=== PATIENT | female | born 1965 | race Two or more races ===

== ENCOUNTER 2018-08-08 19:27 | Emergency (ER) | payer SELFPAY ==
[~2018-08-08] VITALS: Ht 157.5 cm; Wt 79.8 kg
[2018-08-08 20:03] VITALS: BP 149/89
== END 2018-08-09 02:06 | disposition home or self-care (01) ==
LOC: ER 19:27
DX: J01.90 Acute sinusitis, unspecified (principal); Z88.8 Allergy status to other drugs, medicaments and biological substances
CPT/HCPCS: 82962; 93005

== ENCOUNTER 2018-12-20 01:15 | Emergency (ER) | payer MEDICAID ==
[~2018-12-20] VITALS: Ht 157.5 cm; Wt 81.2 kg
[2018-12-20 02:04] LABS: Basophils # (auto) 0 uL; Basophils % (auto) 0.3 % (0.0-2.0); Eosinophils # (auto) 0.1 uL; Eosinophils % (auto) 0.7 % (0.0-7.0); Hematocrit 38.6 % (36.0-46.0); Hemoglobin 12.7 g/dL (12.2-16.2); Lymphocytes % (auto) 36.9 % (10.0-50.0); Mean Corpuscular Hemoglobin 27.2 pg (28.0-32.0); Mean Corpuscular Hgb Conc. 32.9 g/dL (32.0-36.0); Mean Corpuscular Volume 82.8 fL (80.0-100.0); Monocytes # (auto) 0.9 uL; Monocytes % (auto) 11.2 % (0.0-12.0); Neutrophils # (auto) 4.2 uL; Neutrophils % (auto) 50.9 % (37.0-80.0); Nucleated Red Blood Cells % 0.1 %; Platelet Count (auto) 274 10^3/uL (140-450); Red Blood Cells 4.66 10^6/uL (4.0-5.20); Red Cell Distribution Width 13.8 % (11.8-14.3); White Blood Cell 8.2 10^3/uL (4.4-10.8)
[2018-12-20 02:23] LABS: Albumin 3.6 g/dL (3.4-5.0); BUN/Creatinine Ratio 28.1; Calcium 7.9 mg/dL (8.5-10.1); Potassium 3.8 mmol/L (3.5-5.1)
[2018-12-20 02:26] LABS: Bilirubin, Total 0.2 mg/dL (0.2-1.0); Total Protein 7.3 g/dL (6.4-8.2)
[2018-12-20 07:27] VITALS: BP 135/80
[2018-12-20 07:41] LABS: Urine Bacteria MANY /hpf (None Seen); Urine Blood Negative /uL (Negative); Urine Budding Yeast OCCASIONAL /hpf (None Seen); Urine Mucus MODERATE (None Seen); Urine Specific Gravity 1.026 (1.001-1.035); Urine WBC 86 /hpf (0 - 5)
== END 2018-12-20 07:38 | disposition home or self-care (01) ==
LOC: ER 01:20
DX: N39.0 Urinary tract infection, site not specified (principal); E11.9 Type 2 diabetes mellitus without complications; Z98.51 Tubal ligation status; Z88.6 Allergy status to analgesic agent
CPT/HCPCS: 36415; 74176; 80053; 81001; 84702; 85025; 93005

== ENCOUNTER 2019-10-17 10:24 | Emergency (ER) | payer MEDICAID ==
[~2019-10-17] VITALS: Ht 157.5 cm; Wt 84.8 kg
[2019-10-17] MEDS ORDERED: SODIUM CHLORIDE 0.9% 1,000 ML IV ONE (10:25)
[2019-10-17 10:26] VITALS: BP 143/93
[2019-10-17] MEDS ORDERED: LORazepam 2MG/ML-1ML VIAL IV ONE (10:30)
[2019-10-17 11:04] LABS: Albumin 4.2 g/dL (3.4-5.0); Anion Gap 11 (5-15); Blood Urea Nitrogen 15 mg/dL (7-18); Calcium 8.6 mg/dL (8.5-10.1); Carbon Dioxide 22 mmol/L (21-32); Chloride 103 mmol/L (98-107); Glucose 375 mg/dL (74-106); Sodium 136 mmol/L (136-145)
[2019-10-17 11:09] LABS: Alanine Aminotransferase 34 U/L (13-56); Alkaline Phosphatase 75 U/L (45-117); Aspartate Aminotransferase 21 U/L (15-37); BUN/Creatinine Ratio 16.1; Bilirubin, Total 0.4 mg/dL (0.2-1.0); GFR African American 81 mL/min; GFR Non-African American 67 mL/min
[2019-10-17 11:10] LABS: Basophils # (auto) 0.2 uL; Basophils % (auto) 2.4 % (0.0-2.0); Eosinophils # (auto) 0 uL; Eosinophils % (auto) 0.3 % (0.0-7.0); Hematocrit 38.2 % (36.0-46.0); Hemoglobin 12.8 g/dL (12.2-16.2); Lymphocytes # (auto) 2.2 uL; Lymphocytes % (auto) 33.9 % (10.0-50.0); Mean Corpuscular Hemoglobin 27.8 pg (28.0-32.0); Mean Corpuscular Hgb Conc. 33.5 g/dL (32.0-36.0); Mean Corpuscular Volume 83.2 fL (80.0-100.0); Monocytes # (auto) 0.5 uL; Neutrophils # (auto) 3.6 uL; Neutrophils % (auto) 55.4 % (37.0-80.0); Nucleated Red Blood Cells % 0.1 %; Platelet Count (auto) 248 10^3/uL (140-450); Red Blood Cells 4.59 10^6/uL (4.0-5.20); Red Cell Distribution Width 13.3 % (11.8-14.3); White Blood Cell 6.4 10^3/uL (4.4-10.8)
== END 2019-10-17 11:47 | disposition home or self-care (01) ==
LOC: ER 10:26
DX: F41.9 Anxiety disorder, unspecified (principal); E11.65 Type 2 diabetes mellitus with hyperglycemia; R19.7 Diarrhea, unspecified; Z98.51 Tubal ligation status; Z88.6 Allergy status to analgesic agent
CPT/HCPCS: 36415; 71045; 80053; 84484; 85025; 96361; 96374; 99284; J7030

== ENCOUNTER 2019-11-09 17:28 | Emergency (ER) | payer MEDICAID ==
[~2019-11-09] VITALS: Ht 157.5 cm; Wt 84.8 kg
[2019-11-09 17:51] VITALS: BP 149/70
[2019-11-09 18:34] LABS: Urine WBC None Seen /hpf (0 - 5)
[2019-11-09 19:19] LABS: Urine Bacteria NONE SEEN /hpf (None Seen); Urine Blood Negative /uL (Negative); Urine Budding Yeast FEW /hpf (None Seen); Urine Specific Gravity 1.033 (1.001-1.035)
== END 2019-11-09 20:24 | disposition home or self-care (01) ==
LOC: ER 17:39
DX: Z78.0 Asymptomatic menopausal state (principal); E11.9 Type 2 diabetes mellitus without complications; Z88.8 Allergy status to other drugs, medicaments and biological substances
CPT/HCPCS: 81001; 81025

== ENCOUNTER 2020-04-02 09:06 | Emergency (ER) | payer MEDICAID ==
[~2020-04-02] VITALS: Ht 157.5 cm; Wt 81.6 kg
[2020-04-02 09:34] VITALS: BP 127/76
== END 2020-04-02 10:03 | disposition home or self-care (01) ==
LOC: ER 09:06
DX: M62.838 Other muscle spasm (principal); E11.9 Type 2 diabetes mellitus without complications

== ENCOUNTER 2020-07-10 20:43 | Emergency (ER) | payer MEDICAID ==
[~2020-07-10] VITALS: Ht 157.5 cm; Wt 83.9 kg
[2020-07-11 00:57] VITALS: BP 147/82
== END 2020-07-11 01:40 | disposition home or self-care (01) ==
LOC: ER 20:43
DX: H65.03 Acute serous otitis media, bilateral (principal); J30.2 Other seasonal allergic rhinitis; E11.9 Type 2 diabetes mellitus without complications

== ENCOUNTER 2020-08-27 11:10 | Emergency (ER) | payer MEDICAID ==
[~2020-08-27] VITALS: Ht 157.5 cm; Wt 81.6 kg
[2020-08-27 13:02] VITALS: BP 133/86
== END 2020-08-27 14:05 | disposition home or self-care (01) ==
LOC: ER 11:10
DX: S40.862A Insect bite (nonvenomous) of left upper arm, initial encounter (principal); W57.XXXA Bitten or stung by nonvenomous insect and other nonvenomous arthropods, initial encounter; Y93.89 Activity, other specified; Y92.89 Other specified places as the place of occurrence of the external cause; Y99.8 Other external cause status

== ENCOUNTER 2021-04-02 12:26 | Emergency (ER) | payer MEDICAID ==
[~2021-04-02] VITALS: Ht 157.5 cm; Wt 92.5 kg
[2021-04-02 13:08] LABS: Basophils # (auto) 0 10 ^3/uL (0-0.2); Basophils % (auto) 0.3 % (0.0-2.0); Eosinophils # (auto) 0 10 ^3/uL (0-0.8); Eosinophils % (auto) 0.6 % (0.0-7.0); Hemoglobin 12.7 g/dL (12.2-16.2); Lymphocytes # (auto) 2.2 10 ^3/uL (0.4-5.4); Lymphocytes % (auto) 34.1 % (10.0-50.0); Mean Corpuscular Hgb Conc. 32.4 g/dL (32.0-36.0); Mean Corpuscular Volume 83.2 fL (80.0-100.0); Monocytes # (auto) 0.7 10 ^3/uL (0-1.3); Monocytes % (auto) 10.7 % (0.0-12.0); Neutrophils # (auto) 3.5 10 ^3/uL (1.6-8.6); Neutrophils % (auto) 54.3 % (37.0-80.0); Platelet Count (auto) 258 10^3/uL (140-450); Red Blood Cells 4.69 10^6/uL (4.0-5.20); Red Cell Distribution Width 14.1 % (11.8-14.3); White Blood Cell 6.5 10^3/uL (4.4-10.8)
[2021-04-02 13:22] LABS: Calcium 8.7 mg/dL (8.5-10.1); Potassium 4.1 mmol/L (3.5-5.1)
[2021-04-02 13:28] LABS: Albumin 3.6 g/dL (3.4-5.0); BUN/Creatinine Ratio 29.6; Bilirubin, Total 0.2 mg/dL (0.2-1.0); Total Protein 7.8 g/dL (6.4-8.2)
[2021-04-02] MEDS ORDERED: SODIUM CHLORIDE 0.9% 1,000 ML IV ONE ×2 (14:30)
[2021-04-02 17:32] VITALS: BP 157/61
== END 2021-04-02 18:51 | disposition home or self-care (01) ==
LOC: ER 12:26
DX: E11.65 Type 2 diabetes mellitus with hyperglycemia (principal); Z88.8 Allergy status to other drugs, medicaments and biological substances
CPT/HCPCS: 36415; 80053; 85025; 96360; 99283; J7030

== ENCOUNTER 2021-04-20 22:39 | Emergency (ER) | payer MEDICAID ==
[~2021-04-20] VITALS: Ht 157.5 cm; Wt 93.9 kg
[2021-04-20] MEDS ORDERED: ADENOSINE 6 MG/2 ML INJ IV ONE ×2 (22:42→23:15)
[2021-04-20] MEDS ORDERED: LORazepam 2MG/ML-1ML VIAL ONE (22:45)
[2021-04-20 22:59] LABS: Basophils # (auto) 0 10 ^3/uL (0-0.2); Basophils % (auto) 0.3 % (0.0-2.0); Eosinophils # (auto) 0 10 ^3/uL (0-0.8); Eosinophils % (auto) 0.3 % (0.0-7.0); Hematocrit 41.4 % (36.0-46.0); Hemoglobin 13.8 g/dL (12.2-16.2); Lymphocytes # (auto) 3.6 10 ^3/uL (0.4-5.4); Lymphocytes % (auto) 35.9 % (10.0-50.0); Mean Corpuscular Hemoglobin 27.8 pg (28.0-32.0); Mean Corpuscular Hgb Conc. 33.3 g/dL (32.0-36.0); Mean Corpuscular Volume 83.4 fL (80.0-100.0); Monocytes # (auto) 1.2 10 ^3/uL (0-1.3); Monocytes % (auto) 11.7 % (0.0-12.0); Neutrophils # (auto) 5.1 10 ^3/uL (1.6-8.6); Neutrophils % (auto) 51.8 % (37.0-80.0); Nucleated Red Blood Cells % 0.1 %; Platelet Count (auto) 320 10^3/uL (140-450); Red Blood Cells 4.96 10^6/uL (4.0-5.20); Red Cell Distribution Width 14.2 % (11.8-14.3); White Blood Cell 9.9 10^3/uL (4.4-10.8)
[2021-04-20 23:15] LABS: Magnesium 1.9 mg/dL (1.6-2.6)
[2021-04-20] MEDS ORDERED: LORazepam 2MG/ML-1ML VIAL IV ONE (23:15)
[2021-04-20 23:16] LABS: INR 0.92 (0.9-1.15); Partial Thromboplastin Time 26.1 sec (23.0-31.2)
[2021-04-21 01:55] LABS: BUN/Creatinine Ratio 18.6; Potassium 3.9 mmol/L (3.5-5.1)
[2021-04-21 02:44] VITALS: BP 122/81
== END 2021-04-21 03:29 | disposition home or self-care (01) ==
LOC: ER 22:39
DX: I47.1 Supraventricular tachycardia (principal); E11.9 Type 2 diabetes mellitus without complications; Z88.8 Allergy status to other drugs, medicaments and biological substances
CPT/HCPCS: 36415; 71045; 80048; 83735; 84484; 85025; 85610; 85730; 93005; 96374; 96375; 99285; J0153; J2060

== ENCOUNTER 2021-08-23 20:31 | Emergency (ER) | payer MEDICAID ==
[~2021-08-23] VITALS: Ht 157.5 cm; Wt 99.8 kg
[2021-08-24 00:32] LABS: Basophils # (auto) 0 10 ^3/uL (0-0.2); Basophils % (auto) 0.5 % (0.0-2.0); Eosinophils # (auto) 0 10 ^3/uL (0-0.8); Eosinophils % (auto) 0.4 % (0.0-7.0); Lymphocytes # (auto) 1.6 10 ^3/uL (0.4-5.4); Lymphocytes % (auto) 27.6 % (10.0-50.0); Mean Corpuscular Hemoglobin 27.2 pg (28.0-32.0); Mean Corpuscular Hgb Conc. 32.5 g/dL (32.0-36.0); Mean Corpuscular Volume 83.7 fL (80.0-100.0); Monocytes # (auto) 0.7 10 ^3/uL (0-1.3); Monocytes % (auto) 11.5 % (0.0-12.0); Neutrophils # (auto) 3.5 10 ^3/uL (1.6-8.6); Nucleated Red Blood Cells % 0.1 %; Red Blood Cells 4.42 10^6/uL (4.0-5.20); Red Cell Distribution Width 14.2 % (11.8-14.3); White Blood Cell 5.8 10^3/uL (4.4-10.8)
[2021-08-24 00:50] LABS: Albumin 3.4 g/dL (3.4-5.0); BUN/Creatinine Ratio 25.8; Calcium 9.1 mg/dL (8.5-10.1); Potassium 4.5 mmol/L (3.5-5.1)
[2021-08-24 00:58] LABS: Bilirubin, Total 0.2 mg/dL (0.2-1.0); Total Protein 7.4 g/dL (6.4-8.2)
[2021-08-24 01:28] VITALS: BP 148/86
== END 2021-08-24 01:26 | disposition home or self-care (01) ==
LOC: ER 20:32
DX: R23.3 Spontaneous ecchymoses (principal); R21 Rash and other nonspecific skin eruption; E66.9 Obesity, unspecified; E78.00 Pure hypercholesterolemia, unspecified; E11.9 Type 2 diabetes mellitus without complications; K21.9 Gastro-esophageal reflux disease without esophagitis; Z68.41 Body mass index [BMI] 40.0-44.9, adult; Z88.8 Allergy status to other drugs, medicaments and biological substances; Z98.890 Other specified postprocedural states; Z98.51 Tubal ligation status
CPT/HCPCS: 36415; 80053; 85025

== ENCOUNTER 2022-08-13 03:14 | Emergency (ER) | payer MEDICAID, OTHER ==
[~2022-08-13] VITALS: Ht 157.5 cm; Wt 90.7 kg
[2022-08-13 03:23] VITALS: BP 170/71
[2022-08-13] MEDS ORDERED: HYDROcodone-ACET 5/325MG TAB PO ONE (05:15)
== END 2022-08-13 05:44 | disposition home or self-care (01) ==
LOC: EDBD 03:14 → ER 03:20
DX: M54.2 Cervicalgia (principal); M54.6 Pain in thoracic spine; R51.9 Headache, unspecified; E11.9 Type 2 diabetes mellitus without complications; R07.89 Other chest pain; E78.5 Hyperlipidemia, unspecified; Z88.8 Allergy status to other drugs, medicaments and biological substances
CPT/HCPCS: 70450; 71045; 72125; 72128; 72131

== ENCOUNTER 2023-09-05 15:45 | Emergency (ER) | payer MEDICAID, OTHER ==
[~2023-09-05] VITALS: Ht 154.9 cm; Wt 93.5 kg
[2023-09-05] MEDS ORDERED: KETOROLAC TROMETH 60MG/2ML VIAL IM ONE (17:15)
[2023-09-05 17:22] VITALS: BP 154/84; PULSE 100; RESP 16; O2SAT 95
== END 2023-09-05 17:29 | disposition home or self-care (01) ==
LOC: ER 15:45
DX: M79.7 Fibromyalgia (principal); E11.9 Type 2 diabetes mellitus without complications; E78.5 Hyperlipidemia, unspecified; Z98.890 Other specified postprocedural states; Z88.8 Allergy status to other drugs, medicaments and biological substances
CPT/HCPCS: 96372; 99283; J1885

== ENCOUNTER 2024-08-14 10:26 | Emergency (ER) | payer OTHER, MEDICAID ==
[2024-08-14 11:12] LABS: Basophils # (auto) 0 10 ^3/uL (0-0.2); Basophils % (auto) 0.4 % (0.0-2.0); Eosinophils # (auto) 0 10 ^3/uL (0-0.8); Eosinophils % (auto) 0.4 % (0.0-7.0); Hematocrit 36.3 % (36.0-46.0); Hemoglobin 12.1 g/dL (12.2-16.2); Lymphocytes # (auto) 1.7 10 ^3/uL (0.4-5.4); Lymphocytes % (auto) 36.6 % (10.0-50.0); Mean Corpuscular Hemoglobin 27.5 pg (28.0-32.0); Mean Corpuscular Hgb Conc. 33.4 g/dL (32.0-36.0); Mean Corpuscular Volume 82.4 fL (80.0-100.0); Monocytes # (auto) 0.6 10 ^3/uL (0-1.3); Monocytes % (auto) 13.6 % (0.0-12.0); Neutrophils # (auto) 2.3 10 ^3/uL (1.6-8.6); Nucleated Red Blood Cells % 0.1 %; Platelet Count (auto) 225 10^3/uL (140-450); Red Cell Distribution Width 14.8 % (11.8-14.3); White Blood Cell 4.6 10^3/uL (4.4-10.8)
[2024-08-14 11:21] LABS: Chloride 105 mmol/L (98-107); Potassium 4.3 mmol/L (3.5-5.1); Sodium 138 mmol/L (136-145)
[2024-08-14 11:22] LABS: Anion Gap 8 (5-15); Carbon Dioxide 25 mmol/L (20-30)
[2024-08-14 11:23] LABS: Calcium 9.7 mg/dL (8.7-10.4)
[2024-08-14 11:27] LABS: Glucose 210 mg/dL (74-106)
[2024-08-14 11:28] LABS: BUN/Creatinine Ratio 10.5 (10.0-20.0); Blood Urea Nitrogen 8 mg/dL (9-23)
[2024-08-14 13:18] LABS: Urine Bacteria FEW /hpf (None Seen); Urine Blood Negative /uL (Negative); Urine Color Light-Yellow (Yellow); Urine Hyaline Cast FEW /lpf (0 - 2); Urine Mucus FEW (None Seen); Urine Protein, UAD TRACE (Negative); Urine Specific Gravity 1.023 (1.001-1.035); Urine Urobilinogen Normal (Negative); Urine WBC 1 /hpf (0 - 5)
[2024-08-14 13:21] LABS: Urine Clarity CLEAR (Clear)
[2024-08-14 13:47] VITALS: BP 150/94; TEMP 98
[2024-08-14 13:48] VITALS: PULSE 105; RESP 18; O2SAT 97
== END 2024-08-14 13:49 | disposition home or self-care (01) ==
LOC: ER 10:26
DX: E11.649 Type 2 diabetes mellitus with hypoglycemia without coma (principal); E78.5 Hyperlipidemia, unspecified; Z98.51 Tubal ligation status; Z88.6 Allergy status to analgesic agent
CPT/HCPCS: 36415; 80048; 81001; 85025

== ENCOUNTER 2025-09-04 21:15 | Emergency (ER) | payer OTHER, MEDICAID ==
[~2025-09-04] VITALS: Ht 160 cm; Wt 88.9 kg
--- NOTE | 2025-09-04 21:58 | ED.PDOC ---
History of Present Illness HPI Comments 60 y/o obese F, with a history of DM, presents with c/c of hyperglycemia. Patient endorses on checking and noticing her blood glucose levels being elevated, this evening, after becoming dizzy and having trouble maintaining her balance when walking a straight line, earlier. She comments on last at-home blood glucose level being 459. Reports on not taking her long and short acting insulin for 1x week and managing her blood glucose levels with diet and exercise. She also mentions previous episode of symptoms, with accompanying ED visit, 2x weeks ago. No reported nausea, vomiting, shortness of breath, confusion, polyuria, polydipsia, polyphagia, or further associated symptoms. 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 Family History Family History: Family hx of DM Social History Smoker: Non-Smoker Alcohol: Occasionally Drugs: Denies Drug Use Lives In: Home All Other Systems: Reviewed and Negative (Comprehensive review of systems are negative unless stated in HPI) Physical Exam General Appearance: Mild Distress, Obese HEENT: Normal ENT Inspection, Pharynx Normal, TMs Normal Neck: Full Range of Motion, Non-Tender, Normal, Normal Inspection Respiratory: Chest Non-Tender, Lungs Clear, No Accessory Muscle Use, No Respiratory Distress, Normal Breath Sounds Cardiovascular: No Edema, No JVD, No Murmur, No Gallop, Normal Peripheral Pulses, Regular Rate/Rhythm Breast Exam: Deferred Gastrointestinal: No Organomegaly, Non Tender, No Pulsatile Mass, Normal Bowel Sounds, Soft Genitalia: Deferred Pelvic: Deferred Rectal: Deferred Extremities: No calf tenderness, Normal capillary refill, Normal inspection, Normal range of motion, Non-tender, No pedal edema Musculoskeletal : Apperance: Normal Neurologic: Alert, home based assistant II-XII nml as Tested, No Motor Deficits, Normal Affect, Normal Mood, No Sensory Deficits Cerebellar Function: Normal Reflexes: Normal Skin: Dry, Normal Color, Warm Lymphatic: No Adenopathy Was a procedure done? Was a procedure done?: No Differential Dx Considerations may include: hyperglycemia, DKA, medication noncompliance X-Ray, Labs, Meds, VS Vital Signs Date Time Temp Pulse Resp B/P (MAP) Pulse Ox O2 Delivery O2 Flow Rate FiO2 09/05/25 03:09 97.8 92 16 142/70 (94) 99 97.8 09/05/25 02:06 Room Air* 0 21 09/04/25 21:17 97.6 85 19 178/90 95 97.6 Lab Test 09/05/25 01:28 09/04/25 23:03 09/04/25 21:50 09/04/25 21:20 Range/Units POC Glucose 348 H 399 H 70-106 mg/dl White Blood Count 4.6 4.4-10.8 10^3/uL Red Blood Count 4.37 4.0-5.20 10^6/uL Hemoglobin 12.1 L 12.2-16.2 g/dL Hematocrit 37.2 36.0-46.0 % Mean Corpuscular Volume 85.0 80.0-100.0 fL Mean Corpuscular Hemoglobin 27.7 L 28.0-32.0 pg Mean Corpuscular Hemoglobin Concent 32.6 32.0-36.0 g/dL Red Cell Distribution Width 15.1 H 11.8-14.3 % Platelet Count 169 140-450 10^3/uL Mean Platelet Volume 10.4 6.9-10.8 fL Neutrophils (%) (Auto) 50.5 37.0-80.0 % Lymphocytes (%) (Auto) 30.7 10.0-50.0 % Monocytes (%) (Auto) 18.0 H 0.0-12.0 % Eosinophils (%) (Auto) 0.4 0.0-7.0 % Basophils (%) (Auto) 0.4 0.0-2.0 % Neutrophils # (Auto) 2.3 1.6-8.6 10 ^3/uL Lymphocytes # (Auto) 1.4 0.4-5.4 10 ^3/uL Monocytes # (Auto) 0.8 0-1.3 10 ^3/uL Eosinophils # (Auto) 0 0-0.8 10 ^3/uL Basophils # (Auto) 0 0-0.2 10 ^3/uL Nucleated Red Blood Cells 0.0 % Sodium Level 139 136-145 mmol/L Potassium Level 4.3 3.5-5.1 mmol/L Chloride Level 103 98-107 mmol/L Carbon Dioxide Level 25 20-31 mmol/L Anion Gap 11 5-15 Blood Urea Nitrogen 13 9-23 mg/dL Creatinine 0.87 0.550-1.02 mg/dL Glomerular Filtration Rate Calc 77 >90 mL/min BUN/Creatinine Ratio 14.9 10.0-20.0 Serum Glucose 407 *H 74-106 mg/dL Calcium Level 9.4 8.7-10.4 mg/dL Magnesium Level 2.0 1.6-2.6 mg/dL Total Bilirubin 0.3 0.2-1.0 mg/dL Aspartate Amino Transferase (AST) 18 13-40 U/L Alanine Aminotransferase (ALT) 18 7-40 U/L Alkaline Phosphatase 76 46-116 U/L Total Protein 7.6 5.7-8.2 g/dL Albumin 4.5 3.2-4.8 g/dL Blood Gas Specimen Type Venous Blood Gas Sample Site Vbg - n/a Blood Gas Patient Temperature 37.0 Arterial Blood Date Drawn [id number] Yury Test N/a Venous Blood pH 7.402 7.320-7.430 Venous Blood pCO2 at Patient Temp 35.6 L 38.0-54.0 mmHg Venous Blood pO2 at Patient Temp 55.6 H 23.0-48.0 mmHg Venous Blood HCO3 21.7 L 22.0-29.0 mmol/L Venous Blood Base Excess -2.4 L -2.0-3.0 mmol/L Blood Gas Modality Room air FiO2 % 21.0 Current Medications Medications (Trade) Dose Ordered Sig/Viji Route Start Time Stop Time Status Last Admin Insulin Human Regular (InsuLIN R) 5 units ONCE ONCE SC 09/04/25 21:45 09/04/25 21:46 DC 09/05/25 01:48 Time of 1ST Reevaluation: 22:00 Reevaluation 1ST: Unchanged Patient Education/Counseling: Diagnosis, Treatment, Need For Follow Up Family Education/Counseling: No Family Present SEPSIS Sepsis Screen Date sepsis recognized/suspect: Sep 04, 2025 Time Sepsis recognized/suspect: 2116 Recent Procedure: No On Antibiotic Therapy: No Respiratory Rate >20: No Heart Rate >90: No Temp<36 C (96.8 F) or >38.3 C: No SBP <90 or MAP <65 mmHG: No New Acute Mental Status Change: No Is the patient on CPAP, BIPAP,: No Physician Orders Urinalysis (09/04/25 21:29) Test, Urine (09/04/25 21:29) Venous Blood Gas (09/04/25 21:29) Vital Signs Date Time Temp Pulse Resp B/P (MAP) Pulse Ox O2 Delivery O2 Flow Rate FiO2 09/05/25 03:09 97.8 92 16 142/70 (94) 99 97.8 09/05/25 02:06 Room Air* 0 21 09/04/25 21:17 97.6 85 19 178/90 95 97.6 Laboratory Tests Test 09/04/25 23:03 White Blood Count 4.6 10^3/uL (4.4-10.8) Medications Medications Dose Ordered Sig/Viji Route Start Time Stop Time Status Last Admin Dose Admin Insulin Human Regular 5 units ONCE ONCE SC 09/04/25 21:45 09/04/25 21:46 DC 09/05/25 01:48 Departure 1 Departure Time of Disposition: 23:30 Impression: Primary Impression: Uncontrolled type 2 diabetes mellitus Additional Impression: Hyperglycemia Disposition: 01 HOME / SELF CARE / HOMELESS Condition: Stable Discharged With: Self Critical Care Note Critical Care Time?: No Stability Stability form required: No Heart Score Heart Score: Heart Score Response (Comments) Value History N/A 0 EKG N/A 0 Age N/A 0 Risk Factors N/A 0 Troponin N/A 0 Total 0 I personally scribed for VIRGINIA NAJERA MD ([email or web address]) on 09/04/25 at 21:58. Electronically submitted by Victor Hugo Palomo ([email or web address]). VIRGINIA NAJERA MD Sep 04, 2025 21:58
[2025-09-04 23:53] LABS: Hematocrit 37.2 % (36.0-46.0); Hemoglobin 12.1 g/dL (12.2-16.2); Mean Corpuscular Hemoglobin 27.7 pg (28.0-32.0); Mean Corpuscular Volume 85.0 fL (80.0-100.0); Nucleated Red Blood Cells % 0.0 %
[2025-09-05 00:08] LABS: Alanine Aminotransferase 18 U/L (7-40); Albumin 4.5 g/dL (3.2-4.8); Alkaline Phosphatase 76 U/L (46-116); Anion Gap 11 (5-15); BUN/Creatinine Ratio 14.9 (10.0-20.0); Blood Urea Nitrogen 13 mg/dL (9-23); Calcium 9.4 mg/dL (8.7-10.4); Carbon Dioxide 25 mmol/L (20-31); Chloride 103 mmol/L (98-107); Magnesium 2.0 mg/dL (1.6-2.6); Potassium 4.3 mmol/L (3.5-5.1); Sodium 139 mmol/L (136-145); Total Protein 7.6 g/dL (5.7-8.2)
[2025-09-05 00:09] LABS: Bilirubin, Total 0.3 mg/dL (0.2-1.0)
[2025-09-05 00:24] LABS: Glucose 407 mg/dL (74-106)
[2025-09-05] MEDS: InsuLIN REG 1unit/0.01ml Soln (100units/ml) SC ONE (01:48)
[2025-09-05] MEDS: SODIUM CHLORIDE 0.9% 1,000 ML IV ONE (01:53)
[2025-09-05 03:09] VITALS: BP 142/70; PULSE 92; RESP 16; TEMP 97.8; O2SAT 99
== END 2025-09-05 03:15 | disposition home or self-care (01) ==
LOC: ER 21:15
DX: E11.65 Type 2 diabetes mellitus with hyperglycemia (principal); Z98.51 Tubal ligation status; Z79.899 Other long term (current) drug therapy
CPT/HCPCS: 36415; 36600; 80053; 82805; 82947; 83735; 85025; 99283; J1815; 82962